=== PATIENT | female | born 1950 ===

== ENCOUNTER 2023-02-19 07:38 | Day surgery (SDC) | payer OTHER | END 2023-02-19 12:00 | disposition home or self-care (01) | LOC: CIR.AMB 07:38 → AMB-ENDOS 07:38 → CIR.AMB 13:45 | PROVIDERS: ATTEND Surgery | DX: K57.30 Diverticulosis of large intestine without perforation or abscess without bleeding (principal); R93.3 Abnormal findings on diagnostic imaging of other parts of digestive tract; R10.32 Left lower quadrant pain; R19.4 Change in bowel habit; Z20.822 Contact with and (suspected) exposure to COVID-19; Z03.818 Encounter for observation for suspected exposure to other biological agents ruled out ==

== ENCOUNTER 2023-06-09 09:30 | Inpatient (IN) | payer OTHER ==
[~2023-06-09] VITALS: Ht 154.9 cm; Wt 73.5 kg
[2023-06-09] MEDS ORDERED: TELMISARTAN-HC1 EAC1 PO (10:53)
[2023-06-09] MEDS ORDERED: SYNTHROID112 MCG PO (10:53)
[2023-06-09] MEDS ORDERED: FOSAMAX70 MG PO (10:54)
[2023-06-09] MEDS ORDERED: VITAMIN D21250 MCG PO (10:55)
[2023-06-16] MEDS ORDERED: VITAMIN D3250 MCG (08:36)
[2023-06-16] MEDS ORDERED: FOSAMAX PLUS D1 EACH (08:36)
[2023-06-18] MEDS ORDERED: TRAM1TAB98 PO (08:44)
[2023-06-18] MEDS ORDERED: AMOX1TAB5 PO (08:44)
[2023-06-18] MEDS ORDERED: PEPCID AC20 MG PO (08:44)
== END 2023-06-18 10:24 | disposition home or self-care (01) | DRG 331 ==
LOC: ADM 09:30 → SURG 06-15 08:00 → O/R 06-15 08:00 → SURG 06-15 09:30 → EDSTATUS 06-15 09:30 → CIR.AMB 06-15 09:30 → SURG 06-15 11:45
PROVIDERS: ADMIT Surgery; ATTEND Surgery
PROC: 0DBP0ZZ Excision of Rectum, Open Approach (ICD-10-PCS; 2023-06-15)
PROC: 0DTJ0ZZ Resection of Appendix, Open Approach (ICD-10-PCS; 2023-06-15)
PROC: 0DJD8ZZ Inspection of Lower Intestinal Tract, Via Natural or Artificial Opening Endoscopic (ICD-10-PCS; 2023-06-15)
PROC: 0DTN0ZZ Resection of Sigmoid Colon, Open Approach (ICD-10-PCS; principal; 2023-06-15 11:45)
DX: K57.30 Diverticulosis of large intestine without perforation or abscess without bleeding (principal); Z53.31 Laparoscopic surgical procedure converted to open procedure; K38.8 Other specified diseases of appendix; I10 Essential (primary) hypertension; E03.9 Hypothyroidism, unspecified